=== PATIENT | female | born 1985 ===

== ENCOUNTER 2018-03-19 13:33 | Emergency (ER) | payer OTHER ==
[2018-03-19 13:51] VITALS: BP 121/70; PULSE 72; RESP 16; TEMP 98.5; O2SAT 99
--- NOTE | 2018-03-19 15:36 | ED PDOC ---
HPI: Abdomen Time Seen by Provider: 03/19/18 13:58 Chief Complaint (Nursing): Female Genitourinary Chief Complaint (Provider): Abdominal Pain History Per: Patient History/Exam Limitations: no limitations Onset/Duration Of Symptoms: Hrs (last hour) Current Symptoms Are (Timing): Still Present Pain Scale Rating Of: 3 Location Of Pain/Discomfort: Other (lower) Quality Of Discomfort: Cramping Associated Symptoms: Other (vaginal spotting) Additional Complaint(s): 32 year old female presents to the ED for evaluation of the lower abdominal pain , onset last hour. Patient rates the pain 3/10 and describes it as cramping with associated vaginal spotting, for which she has not had to use any tampons or pads. She reports she is 6 weeks and is taking vitamins, but has not had an US for this yet. Patient reports one prior carried to term via . Denies nausea, vomiting, urinary symptoms, flank pain, recent fever, cough, leg swelling, calf tenderness, or shortness of breath. PMD: Martir [place] Last Menstral Period: 02/11/2018 Past Medical History Reviewed: Historical Data, Nursing Documentation, Vital Signs Vital Signs: Last Vital Signs Temp 98.5 F 03/19/18 13:49 Pulse 72 03/19/18 13:49 Resp 16 03/19/18 13:49 BP 121/70 03/19/18 13:49 Pulse Ox 99 03/19/18 19:48 - Medical History PMH: No Chronic Diseases - Surgical History Surgical History: - Family History Family History: States: Hypertension - Social History Current smoker - smoking cessation education provided: No Alcohol: None Drugs: Denies - Home Medications Home Medications: Ambulatory Orders Medication Instructions Recorded Acetaminophen [Acetaminophen 8 650 mg PO Q8 PRN #24 tablet.er 03/19/18 Hour] - Allergies Allergies/Adverse Reactions: Allergies Allergy/AdvReac Type Severity Reaction Status Date / Time No Known Allergies Allergy Verified 03/19/18 13:49 Review of Systems ROS Statement: Except As Marked, All Systems Reviewed And Found Negative Constitutional: Negative for: Fever Respiratory: Negative for: Cough, Shortness of Breath Gastrointestinal: Positive for: Abdominal Pain (lower). Negative for: Nausea, Vomiting, Other (urinary symptoms ) Genitourinary Female: Positive for: Vaginal Bleeding Musculoskeletal: Negative for: Other (flank pain) Physical Exam - Reviewed Nursing Documentation Reviewed: Yes Vital Signs Reviewed: Yes - Physical Exam Comments: GENERAL APPEARANCE: Patient is awake, alert, oriented x 3, in no acute distress. Nontoxic appearing. SKIN: Warm, dry; (-) cyanosis. EYES: (-) conjunctival pallor, (-) scleral icterus. ENMT: Mucous membranes moist. NECK: Supple, FROM (-) tenderness, (-) stiffness, (-) lymphadenopathy. CHEST AND RESPIRATORY: (-) rales, (-) rhonchi, (-) wheezes; breath sounds equal bilaterally. HEART AND CARDIOVASCULAR: (-) irregularity; (-) murmur, (-) gallop. ABDOMEN AND GI: (-) distention. Bowel sounds active x4; mild suprapubic tenderness. (-) guarding, (-) rebound, (-) palpable masses, (-) CVA tenderness. EXTREMITIES: (-) deformity, (-) edema, (+) distal pulses. NEURO AND PSYCH: Mental status as above; (-) focal findings. - Laboratory Results Result Diagrams: 03/19/18 16:15 03/19/18 16:15 Urine POC: Positive Urine dip results: Positive for: Blood (moderate). Negative for: Leukocyte Esterase, Nitrate, Ketones, Glucose, Bilirubin, Protein - ECG O2 Sat by Pulse Oximetry: 99 (RA) Pulse Ox Interpretation: Normal Medical Decision Making Medical Decision Making: Time: 1452 Initial Impression: Abdominal Pain in 1st Trimester, Vaginal Bleeding Initial Plan: --IV insertion --Type and Screen --BETA-HCG, Quantitative --CMP --Urine (POC) --Urine Dip --CBC w/ differential --Tylenol 650mg --Transvaginal US --Reevaluation 1615 US reviewed, radiology report follows Dictator : Claudio Salinas MD Report Date : 03/19/2018 15:54:55 PROCEDURE: OB Pelvic Ultrasound HISTORY: confirm IUP, vaginal bleeding 6wks LMP: 02/01/2018 COMPARISON: None available. FINDINGS: UTERUS: Gestational sac: Single intrauterine gestation. Mean sac diameter measures 1.2 cm compatible with estimated gestational age of 5 weeks, 2 days Yolk sac: Measures 0.3 cm pole: [place]-rump length measures 0.2 cm, out of range Heart rate: Not yet identified. age (Ultrasound estimated): 5 weeks, 2 days Jenae-gestational hemorrhage: Small area of hemorrhage measuring 1.4 x 0.6 x 1.2 cm. Date of delivery (Ultrasound estimated) : 11/17/2018 Uterus measures 7.6 x 4.7 x 5.3 cm. Normal in size and appearance. CERVIX: Measures 3.4 cm. Long and closed. No cervical abnormality seen. RIGHT OVARY: Measures 3.0 x 1.4 x 3.3 cm. No mass lesion. Normal flow. LEFT OVARY: Measures 3.4 x 2.0 x 3.1 cm. Corpus luteal cyst measuring 1.1 x 0.6 x 1.2 cm. Normal flow. FREE FLUID: None. OTHER FINDINGS: None. IMPRESSION: Single intrauterine gestation with gestational age by mean sac diameter size estimated at 5 weeks, 2 days. Yolk sac is present. A small pole may be present. Small perigestational hemorrhage is evident. Close clinical follow-up with serial pelvic sonography and serum beta HCG levels is recommended. Patient pending lab results. Consult placed to [facility]. 1635 Spoke with OBGYN, Dr Ghotra, who states that patient can be discharged with close follow up as directed for serial U/S and beta quant levels. Labs reviewed and grossly unremarkable, pending urine results and beta quant. 1720 Beta Quant: 14,241.00 UDip reviewed. U/A and U/C ordered. Type and Screen: O+ Antibody screen: Negative 5855 On re-evaluation, patient reports improvement of symptoms, denies any abdominal pain at present. On exam, patient remains AAOx3, in no acute distress. Lungs clear to auscultation, cardiac RRR, abdomen soft, non-tender, repeat neuro exam shows no focal findings. VSS, stable for discharge. Lab/Diagnostic results d/w the patient in great detail. Diagnosis of abdominal pain and vaginal bleeding in first trimester d/w the patient. Based on history, exam and diagnostic results, plan will be for outpatient follow up. Patient instructed to follow-up with pmd / referral provided / the clinic in 1- 2 days without fail. Advised to take medication as prescribed. Return to the emergency room at any time for any new or worsening symptoms. Patient states she fully agrees with and understands discharge instructions. States that she agrees with the plan and disposition. Verbalized and repeated discharge instructions and plan. I have given the patient opportunity to ask any additional questions. Scribe Attestation: Documented by Иван Jean, acting as a scribe for Berta Miller PA-C Provider Scribe Attestation: All medical record entries made by the Scribe were at my direction and personally dictated by me. I have reviewed the chart and agree that the record accurately reflects my personal performance of the history, physical exam, medical decision making, and the department course for this patient. I have also personally directed, reviewed, and agree with the discharge instructions and disposition. Disposition - Clinical Impression Clinical Impression: Abdominal pain affecting , Vaginal bleeding affecting early - Patient ED Disposition Is Patient to be Admitted: No Counseled Patient/Family Regarding: Studies Performed, Diagnosis, Need For Followup, Rx Given - Disposition [facility] [Outside] Disposition: Routine/Home Disposition Time: 17:39 Condition: STABLE Additional Instructions: REPEAT U/S AND BETA QUANT WITHIN 1 WEEK FOR FURTHER EVALUATION. RETURN TO ED IF UNABLE TO FOLLOW UP WITH CLINIC. Prescriptions: Acetaminophen [Acetaminophen 8 Hour] 650 mg PO Q8 PRN #24 tablet.er PRN Reason: Pain, Moderate (4-7) Instructions: Tests, Screenings, Bleeding With , - The Second Month Forms: Getyoo (Maltese) Print Language: MOHAWK - POA Present On Arrival: None Results - Lab Results Lab Results: 03/19/18 03/19/18 03/19/18 17:50 16:15 16:15 WBC 6.7 RBC 4.57 Hgb 13.7 Hct 40.2 MCV 88.0 MCH 29.9 MCHC 33.9 RDW 13.5 Plt Count 313 MPV 7.4 Neut % (Auto) 59.8 Lymph % (Auto) 32.2 [place] % (Auto) 5.8 Eos % (Auto) 1.2 Baso % (Auto) 1.0 Neut # (Auto) 4.0 Lymph # (Auto) 2.1 [place] # (Auto) 0.4 Eos # (Auto) 0.1 Baso # (Auto) 0.1 Sodium Potassium Chloride Carbon Dioxide Anion Gap BUN Creatinine Est GFR ( Amer) Est GFR (Non-Af Amer) Random Glucose Calcium Total Bilirubin AST ALT Alkaline Phosphatase Total Protein Albumin Globulin Albumin/Globulin Ratio Beta HCG, Quant Urine Color Straw Urine Clarity Slighty-cloudy Urine pH 6.0 Ur Specific [place] 1.011 Urine Protein Negative Urine Glucose (UA) Neg Urine Ketones Negative Urine Blood Moderate Urine Nitrate Negative Urine Bilirubin Negative Urine Urobilinogen 0.2-1.0 Ur Leukocyte Esterase Neg Urine RBC (Auto) 2 Urine Microscopic WBC < 1 Ur Squamous Epith Cells 4 Blood Type O POSITIVE Antibody Screen Negative BBK History Checked No verified bt 03/19/18 16:15 WBC RBC Hgb Hct MCV MCH MCHC RDW Plt Count MPV Neut % (Auto) Lymph % (Auto) [place] % (Auto) Eos % (Auto) Baso % (Auto) Neut # (Auto) Lymph # (Auto) [place] # (Auto) Eos # (Auto) Baso # (Auto) Sodium 141 Potassium 4.0 Chloride 102 Carbon Dioxide 24 Anion Gap 19 BUN 13 Creatinine 0.6 L Est GFR ( Amer) > 60 Est GFR (Non-Af Amer) > 60 Random Glucose 87 Calcium 10.7 H Total Bilirubin 0.3 AST 52 H ALT 40 Alkaline Phosphatase 47 Total Protein 8.7 H Albumin 4.7 Globulin 4.0 H Albumin/Globulin Ratio 1.2 Beta HCG, Quant 68088.00 Urine Color Urine Clarity Urine pH Ur Specific [place] Urine Protein Urine Glucose (UA) Urine Ketones Urine Blood Urine Nitrate Urine Bilirubin Urine Urobilinogen Ur Leukocyte Esterase Urine RBC (Auto) Urine Microscopic WBC Ur Squamous Epith Cells Blood Type Antibody Screen BBK History Checked
--- NOTE | 2018-03-19 15:56 | US ---
PROCEDURE: OB Pelvic Ultrasound HISTORY: confirm IUP, vaginal bleeding 6wks LMP: 02/01/2018 COMPARISON: None available. FINDINGS: UTERUS: Gestational sac: Single intrauterine gestation. Mean sac diameter measures 1.2 cm compatible with estimated gestational age of 5 weeks, 2 days Yolk sac: Measures 0.3 cm pole: [place]-rump length measures 0.2 cm, out of range Heart rate: Not yet identified. age (Ultrasound estimated): 5 weeks, 2 days Jenae-gestational hemorrhage: Small area of hemorrhage measuring 1.4 x 0.6 x 1.2 cm. Date of delivery (Ultrasound estimated) : 11/17/2018 Uterus measures 7.6 x 4.7 x 5.3 cm. Normal in size and appearance. CERVIX: Measures 3.4 cm. Long and closed. No cervical abnormality seen. RIGHT OVARY: Measures 3.0 x 1.4 x 3.3 cm. No mass lesion. Normal flow. LEFT OVARY: Measures 3.4 x 2.0 x 3.1 cm. Corpus luteal cyst measuring 1.1 x 0.6 x 1.2 cm. Normal flow. FREE FLUID: None. OTHER FINDINGS: None. IMPRESSION: Single intrauterine gestation with gestational age by mean sac diameter size estimated at 5 weeks, 2 days. Yolk sac is present. A small pole may be present. Small perigestational hemorrhage is evident. Close clinical follow-up with serial pelvic sonography and serum beta HCG levels is recommended.
[2018-03-19 16:26] LABS: BASO # 0.1 K/uL (0.0-0.2); EOS # 0.1 K/uL (0.0-0.7); EOS % 1.2 % (0.0-4.0); HEMOGLOBIN 13.7 g/dL (12.0-16.0); LYMPH # 2.1 K/uL (1.0-4.3); LYMPH % 32.2 % (20.0-40.0); MEAN CORPUSCULAR HEMOGLOBIN 29.9 pg (27.0-31.0); MEAN CORPUSCULAR HGB CONC 33.9 g/dL (33.0-37.0); MEAN PLATELET VOLUME 7.4 fl (7.2-11.7); MONO # 0.4 K/uL (0.0-0.8); MONO % 5.8 % (0.0-10.0); NEUT % 59.8 % (50.0-75.0); NRBC % 0.1 % (0.0-0.0); RBC 4.57 Mil/uL (3.80-5.20); RED CELL DISTRIBUTION WIDTH 13.5 % (11.5-14.5); WHITE BLOOD COUNT 6.7 K/uL (4.8-10.8)
[2018-03-19 16:35] LABS: ALB/GLOB RATIO 1.2 (1.0-2.1); ALBUMIN 4.7 g/dL (3.5-5.0); ALT/SGPT 40 U/L (9-52); AST/SGOT 52 U/L (14-36); BLOOD UREA NITROGEN 13 mg/dl (7-17); CALCIUM 10.7 mg/dL (8.4-10.2); GFR AFRICAN-AMERICAN > 60; GFR NON-AFRICAN AMERICAN > 60
[2018-03-19 18:10] LABS: SQUAMOUS EPITHIAL 4 /hpf (0-5); URINE BILIRUBIN NEGATIVE (NEGATIVE); URINE BLOOD MODERATE (NEGATIVE); URINE CLARITY SLIGHTY-CLOUDY (Clear); URINE COLOR STRAW (YELLOW); URINE GLUCOSE (UA) NEG (Normal); URINE LEUKOCYTE ESTERASE NEG Leu/uL (Negative); URINE PROTEIN NEGATIVE (NEGATIVE); URINE UROBILINOGEN 0.2-1.0 mg/dL (0.2-1.0)
== END 2018-03-19 17:59 | disposition home or self-care (01) ==
LOC: H.ER 13:33
DX: O20.9 Hemorrhage in early pregnancy, unspecified (principal); O26.891 Other specified pregnancy related conditions, first trimester; Z3A.01 Less than 8 weeks gestation of pregnancy